=== PATIENT | female | born 1955 | race Caucasian/White ===

== ENCOUNTER → 2018-12-17 09:04 | Outpatient (CLI) | payer BC ==
--- NOTE | ~2018-12-17 | ST ---
PATIENT:FRANCIA HILLS MEDICAL RECORD: [id number] SEX: F LOCATION:[facility] ORDER #: ADMISSION DATE: 12/17/18 AGE OF PATIENT: 63 REFERRING PHYSICIAN: INTERPRETING PHYSICIAN: JOEY ELLIS MD DATE OF SERVICE: 12/17/2018 Nuclear Stress test INDICATIONS: Angina. PROCEDURE: The patient was exercised on a standard Lexiscan protocol with 31 mCi of sestamibi injected at peak stress, 11 mCi used to have previously for rest images. FINDINGS: Gated SPECT reveals preserved ejection fraction at 83% with good wall motion and thickening and brightening throughout all segments. SPECT imaging Cardiolite was used as myocardial fusion agent. There is homogeneous uptake throughout all segments at rest and stress with no evidence of inducible ischemia or previous infarction. OVERALL IMPRESSION: 1. This is a normal nuclear stress test with no evidence of inducible ischemia or previous infarction. 2. Gated SPECT reveals a preserved ejection fraction at 83%. In this patient with ongoing symptomatology, the current scan does not suggest the presence of hemodynamically significant coronary artery disease. Evaluate noncardiac etiology of chest pain. TRANSINT:[id number] Voice Confirmation ID: [id number] DOCUMENT ID: [id number] JOEY ELLIS MD CC: SHARON WADE DO [id number] DICTATION DATE: 12/17/18 1621 [facility] PATROL POLICE: 12/18/18 [id number] DEP CLI 12/17/18 [id number] [place] [id number]
== END | disposition home or self-care (01) ==
LOC: D.HCCARDIO 09:00
PROVIDERS: ATTEND Internal Medicine Interventional Cardiology
DX: R07.9 Chest pain, unspecified (principal)